=== PATIENT | male | born 1990 | race Caucasian/White ===

== ENCOUNTER 2024-11-30 18:13 | Emergency (ER) | payer OTHER, SELFPAY ==
[2024-11-30 18:20] VITALS: BP 133/94
[2024-11-30 18:48] LABS: Hematocrit 48.5 % (39.0-52.0); Hemoglobin 16.4 g/dL (13.0-18.0); Mean Corp Hgb Conc. 33.8 g/dL (33.0-37.0); Mean Corpuscular Volume 91.7 fL (80.0-94.0); Nucleated Red Blood Cells % 0 % (-); Platelet Count 306 10^3/uL (130-400); Red Cell Dist. Width 11.9 % (11.5-14.5)
[2024-11-30 19:05] LABS: ALT (SGPT) 48 U/L (0-50); AST (SGOT) 38 U/L (17-59); Albumin 4.7 g/dl (3.5-5.0); Alkaline Phosphatase 56 U/L (38-126); Blood Urea Nitrogen 12 mg/dl (9-20); Calcium 9.4 mg/dl (8.4-10.2); Carbon Dioxide 30 mmol/L (22-30); Chloride 100 mmol/L (98-107); Glucose 122 mg/dl (70-99); Lipase 108 U/L (23-300); Potassium 4.2 mmol/L (3.5-5.1); Sodium 137 mmol/L (135-145); Total Protein 7.3 g/dl (6.3-8.2); eGFR > 60.00
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
[2024-11-30] MEDS: OMNIPAQUE 50 ML PO (19:53)
[2024-11-30] MEDS: ZOFRAN 4 MG IV (20:22)
[2024-11-30 20:24] VITALS: BP 154/87
[2024-11-30 20:25] VITALS: BMI 33.4
[2024-11-30 21:00] VITALS: BP 162/78
== END 2024-12-01 | disposition home or self-care (01) ==
LOC: EMR 18:13
PROVIDERS: Emergency Medicine; EMERGENCY PHYSICIAN Emergency Medicine; FAMILY PHYSICIAN Family Medicine
DX: R10.9 Unspecified abdominal pain (principal); K59.00 Constipation, unspecified; I10 Essential (primary) hypertension; F11.20 Opioid dependence, uncomplicated; Z90.49 Acquired absence of other specified parts of digestive tract
CPT/HCPCS: 99284; 96374; 74177; 80053; 83690; 85025; Q9967